=== PATIENT | male | born 1980 | race Hispanic/Latino ===

== ENCOUNTER 2016-12-23 10:11 | Emergency (ER) | payer OTHER ==
[~2016-12-23] VITALS: Ht 180.3 cm; Wt 91.0 kg
[~2016-12-23 10:11] MED LIST: IBUP-1827 PO
[2016-12-23 10:15] VITALS: BP 126/82; PULSE 82; RESP 17; O2SAT 98
--- NOTE | 2016-12-23 10:16 | ED.REPORT ---
HPI-Chest Pain Under 40 Date of Service Dec 23, 2016 ED Provider: Evan Foley DO 36 year old male with a history of GERD, anxiety, and depression presents to the ER accompanied by his complaining of chest pain onset while working about an hour ago. Associated symptom of transient left arm numbness lasting approximately 1 minute. Squatting down and breathing deeply provided some relief of his pain. Symptoms are currently improved, with residual chest soreness. He states that symptoms onset shortly after he was "disrespected by his boss". Currently he is on Tramadol for muscle spasms in his back. Nursing Notes Stated Complaint: CHEST PAIN Chief Complaint: Chest Pain Nursing Notes Reviewed: Yes Allergies: Coded Allergies: No Known Allergies (Verified Allergy, Unknown, 03/08/16) Scheduled PRN Ibuprofen (Ibuprofen) 600 Mg Tablet 600 MG PO QID PRN PRN For Pain General Time Seen by MD: 10:16 Chief Complaint Chest pain Hx Obtained From: Patient Arrived By: Walk-in Sudden in Onset?: Yes Onset Occurred: 1 - 4 hours ago (1) Symptom Duration: Since onset Location: : Substernal Quality: Painful Severity: Current: Mild Severity: Maximum: Moderate Associated with: Reports: Numbness/tingling (Left Arm) Pertinent Negative: Pt denies other symptoms Context Related History: Reports: Anxiety disorder, GERD Similar Sx Previous: No Past Medical History Past Medical History GERD anxiety depression Past Surgical History denies Family History Reports: Diabetes mellitus, Hypertension Smoking History Never Smoker Social History Alcohol Use: In recovery Drug Use: Denies drug use Other Social History: Occupation lives with Ambulatory Status Independent Review of Systems Constitutional: Denies: Chills, Fever Respiratory: Denies: Non-productive cough, Shortness of breath Cardiovascular: Reports: Chest pain GI: Denies: Nausea, Vomiting Musculoskeletal: Denies: Back pain, Extremity pain, Neck pain Skin: Denies Diaphoresis Neurologic: Reports: Numbness (Left Arm) Complete sys rev & neg: except as marked. Physical Exam Initial Vital Signs Vital Signs (First) Date Time Temp Pulse Resp B/P Pulse Ox O2 Delivery O2 Flow Rate FiO2 12/23/16 10:15 36.8 82 17 126/82 98 Room Air Initial VS: Reviewed Head / Eyes: Atraumatic, Normocephalic Neck: Supple, Non-tender, Full range of motion Extremities: Vascular intact, Neuro intact, No swelling, No tenderness Skin: Warm, Dry, No cyanosis Neurologic: Alert, Oriented, Nonfocal General/Constitutional: Awake, Alert, Well developed, Well nourished Respiratory / Chest: Breath sounds NL, Breath sounds = bilat, No respiratory distress, No rales, No rhonchi, No wheezing Chest Wall / Ribs: Positive: Chest tender upper L Reproducible chest pain by moving the left arm. Cardiovascular: Heart rate NL, Regular rhythm, Heart sounds NL, No murmurs, Peripheral circulation NL, Pulses = bilaterally, No gross BP differential Interpretation & Diagnostics Lab Results Interpretation Result Diagram: 12/23/16 1031 12/23/16 1031 Test 12/23/16 10:31 White Blood Count 7.2th/mm3 (3.8-10.1) Red Blood Count 4.79mil/mm3 (4.40-5.80) Hemoglobin 13.3g/dL (13.8-17.2) Hematocrit 40.7% (41.0-50.0) Mean Corpuscular Volume 85.0fL (81-100) Mean Corpuscular Hemoglobin 27.8pg (27.0-35.0) Mean Corpuscular Hemoglobin Concent 32.7% (32.0-37.0) Red Cell Distribution Width 13.4% (12.3-15.4) Platelet Count 274bil/L (150-400) Neutrophils (%) (Auto) 70.7% (40-74) Lymphocytes (%) (Auto) 18.3% (14-46) Monocytes (%) (Auto) 8.2% (4-12) Eosinophils (%) (Auto) 2.4% (0-5) Basophils (%) (Auto) 0.3% (0-3) Sodium Level 138mEq/L (134-144) Potassium Level 4.0mEq/L (3.5-5.2) Chloride Level 101mEq/L (97-108) Carbon Dioxide Level 24mmol/L (18-29) Blood Urea Nitrogen 11mg/dL (6-20) Creatinine 0.73mg/dL (0.76-1.27) Estimat Glomerular Filtration Rate 129mL/min (>59) Glucose Level 82mg/dL (60-99) Calcium Level 9.3mg/dL (8.5-10.1) Magnesium Level 1.9mg/dL (1.6-2.6) Total Bilirubin 0.4mg/dL (0.0-1.2) Aspartate Amino Transf (AST/SGOT) 16U/L (0-50) Alanine Aminotransferase (ALT/SGPT) 17U/L (0-44) Alkaline Phosphatase 66U/L (25-150) Troponin T < 0.010ug/L (0.0-0.011) Total Protein 7.4g/dL (6.4-8.4) Albumin 4.2g/dL (3.4-5.0) ECG Interpretation ECG Interpretation: Sinus rhythm, rate 79 Time: 10:24 Interpreted by: ED physician X-Ray Chest Interpretation Chest Xray Interpretation: IMPRESSION: No acute pulmonary process. Dictated by: Katie Hyman M.D. on 12/23/2016 at 11:05 Approved by: Katie Hyman M.D. on 12/23/2016 at 11:05 View: Portable, 1 view Interpretation / Wet Read by: Interpret - Radiologist Re-Eval/Medical Decision Med Decision/Clinical Course Doubt acute coronary syndrome, pulmonary embolism, aortic dissection, or any other life-threatening pathology. Symptoms sound directly correlated with an acute situational disturbance and have resolved. Return in follow-up precautions given. Source of Hx: Old records Re-Evaluation/Progress : Time of Eval: 11:56 Re-Evaluation/Progress Note: Discussed physical lab and radiology results and plan to discharge. Patient is amenable to the plan. Return precautions given. All other questions addressed. Counseled Regarding: Diagnosis, Lab results, Need for follow-up, When/why to return to ED Discharge & Departure Primary Impression: Chest pain Disposition: Home Discharge Condition All VS Reviewed: Yes Condition: Stable Patient Instructions: Chest Pain (ED) Additional Instructions: Your lab results and chest x-ray do not show any signs of heart attack. Call your primary care provider to arrange a follow-up appointment in the next 1 -2 days. Return to the ER if you develop new or uncontrollable chest pain, shortness of breath, profuse sweating, nausea, vomiting, or any other concerning symptoms. Referrals: Jere Villalba MD (PCP) Scribe Attestation Portions of this note were transcribed by Epi Serna. IDr. Foley, personally performed the history, physical exam and medical decision-making; I reviewed and confirmed the accuracy of the information in the transcribed note. Signed by: Emerson Valiente, 12/23/2016 and 11:58 copies to: Jere Villalba MD, Timothy S DO Dec 23, 2016 10:16 EPI SERNA Dec 23, 2016 10:25
[2016-12-23 10:50] LABS: BASOPHILS % (AUTO) 0.3 % (0-3); EOSINOPHILS % (AUTO) 2.4 % (0-5); MONOCYTES % (AUTO) 8.2 % (4-12); Mean Corpuscular Hemoglobin 27.8 pg (27.0-35.0); NEUTROPHILS % (AUTO) 70.7 % (40-74); Platelet Count 274 bil/L (150-400)
--- NOTE | 2016-12-23 11:06 | DRSVH ---
PROCEDURE: X-RAY CHEST ONE VIEW, PORTABLE ([id number]) INDICATIONS: cp TECHNIQUE: One view of the chest was acquired. COMPARISON: [facility], CR, XR CHEST 2VW, 03/08/2016, 19:46. FINDINGS: Surgical changes and devices: None. Lungs and pleura: No pleural effusions or pneumothorax. Lungs are clear. Mediastinum: Mediastinal contours appear normal. Heart size is normal. Bones and chest wall: No suspicious bony lesions. Overlying soft tissues appear unremarkable. IMPRESSION: No acute pulmonary process. Dictated by: Katie Hyman M.D. on 12/23/2016 at 11:05 Approved by: Katie Hyman M.D. on 12/23/2016 at 11:05
[2016-12-23 11:34] LABS: Magnesium 1.9 mg/dL (1.6-2.6)
[2016-12-23 11:43] LABS: TROPONIN T < 0.010 ug/L (0.0-0.011)
[2016-12-23 12:06] VITALS: BP 105/67; PULSE 78; RESP 16; O2SAT 98
== END 2016-12-23 12:07 | disposition home or self-care (01) ==
LOC: SED 10:11
DX: R07.2 Precordial pain (principal); R20.0 Anesthesia of skin; M62.830 Muscle spasm of back; K21.9 Gastro-esophageal reflux disease without esophagitis

== ENCOUNTER 2017-01-22 18:39 | Emergency (ER) | payer OTHER ==
[~2017-01-22] VITALS: Ht 180.3 cm; Wt 90.0 kg
[2017-01-22 18:50] VITALS: BP 101/63; PULSE 69; RESP 16; O2SAT 100
--- NOTE | 2017-01-22 19:36 | DRSVH ---
PROCEDURE: X-RAY LEFT FOOT COMPLETE, MINIMUM THREE VIEWS ([id number]) INDICATIONS: Stepped on nail TECHNIQUE: 3 views of the foot were acquired. COMPARISON: None. FINDINGS: Bones: No fractures or dislocations. No suspicious bony lesions. Soft tissues: No tibiotalar joint effusion. Achilles tendon appears normal. IMPRESSION: No fracture or foreign body found. No osteomyelitis identified. Dictated by: Royer Boyer M.D. on 01/22/2017 at 19:34 Approved by: Royer Boyer M.D. on 01/22/2017 at 19:34
--- NOTE | 2017-01-22 19:53 | ED.REPORT ---
HPI-Extremity Problem Lower Date of Service January 22, 2017 ED Provider: Matt Resendiz MD Patient is a 36 year old male who presents to the ED s/p stepping on a nail around 1800 yesterday. The nail went through his shoe into his L heel. He denies fever, abdominal pain, or any other symptoms. He does not know when his last tetanus shot was. Nursing Notes Stated Complaint: STEPPED ON NAIL/LEFT FOOT Chief Complaint: Extremity Trauma Nursing Notes Reviewed: Yes Allergies: Coded Allergies: No Known Allergies (Verified Allergy, Unknown, 01/22/17) Scheduled Ciprofloxacin (Ciprofloxacin) 500 Mg Tablet 500 MG PO BID Scheduled PRN Ibuprofen (Ibuprofen) 600 Mg Tablet 600 MG PO QID PRN PRN For Pain General Time Seen by MD: 19:50 Chief Complaint Other (Foot injury L ) Hx Obtained From: Patient Arrived By: Walk-in Onset Occurred: Yesterday Immunizations: Tetanus not up to date Past Medical History Past Medical History GERD anxiety depression Past Surgical History denies Family History Reports: Diabetes mellitus, Hypertension Smoking History Never Smoker Social History Alcohol Use: In recovery Drug Use: Denies drug use Other Social History: Occupation lives with Ambulatory Status Independent Review of Systems Constitutional: Denies: Fever Musculoskeletal: Reports: Extremity swelling (L foot pain) Complete sys rev & neg: except as marked. GI: Denies: Abdominal pain Physical Exam Initial Vital Signs Vital Signs (First) Date Time Temp Pulse Resp B/P Pulse Ox O2 Delivery O2 Flow Rate FiO2 01/22/17 18:50 36.8 69 16 101/63 100 Room Air Initial VS: Reviewed General/Constitutional: Well-developed, Well-nourished Head / Eyes: Atraumatic, Normocephalic Neck: Full range of motion Respiratory: Breath sounds normal, Clear to auscultation, No respiratory distress Cardiovascular: Regular rate & rhythm, Heart sounds normal, Intact distal pulses Abdomen / GI: Soft, Non-tender Skin: Warm, Dry, No cyanosis Neurologic: Alert, Oriented, Nonfocal Psychiatric: Mood/affect normal, Behavior normal, Normal thought content Lower Extremity / Pelvis / MS: Inspection NL Ankle / Foot: Neurologic intact, Vascular intact Puncture wound on the L heel that is about 2 mm across. No erythema, drainage, foreign body, warmth, or sign of infection. Interpretation & Diagnostics X-Ray Interpretation Xray Interpretation: IMPRESSION: No fracture or foreign body found. No osteomyelitis identified. Dictated by: Royer Boyer M.D. on 01/22/2017 at 19:34 Approved by: Royer Boyer M.D. on 01/22/2017 at 19:34 Study Performed: Foot, L, 3 views Interpretation / Wet Read by: Interpret - Radiologist Re-Eval/Medical Decision Med Decision/Clinical Course Patient presents for evaluation after stepping on a nail yesterday. The nail punctured through his shoe and into his foot. Examination reveals a puncture wound about the plantar aspect of his foot. There is no evidence of foreign body or infection. Here in the emergency room his tetanus status was updated. I prescribed a course of ciprofloxacin for pseudomonal coverage. He is advised to return immediately for any signs of infection. Plain films demonstrate no foreign body in the foot. Prior to discharge follow-up and return precautions were reviewed in detail with the patient who verbalized understanding and agreement with the plan. The patient was discharged in stable condition. Re-Evaluation/Progress : Time of Eval: 20:00 Re-Evaluation/Progress Note: Discussed plan for discharge. Patient understands and agrees with plan. All questions addressed at this time. Counseled Regarding: Diagnosis, Need for follow-up, When/why to return to ED Discharge & Departure Impression: Primary Impression: Puncture wound of left foot excluding toes without complication Encounter type: initial encounter Qualified Code: S91.332A - Puncture wound without foreign body, left foot, initial encounter Disposition: Home Discharge Condition All VS Reviewed: Yes Condition: Improved Additional Instructions: Thank you for seeking care at the emergency room. Our primary goal today in the ED was to evaluate you for any life-threatening conditions. Your evaluation was reassuring. You will be discharged with a prescription for ciprofloxacin. Take as directed. You should follow-up with your primary doctor in the next week. You should return to the ED immediately if you develop fevers, chills, vomiting , swelling, redness, warmth, or any other concerning signs or symptoms. Thank you for letting us partake in your care today. Referrals: Ruby Braga DO (PCP) Scribe Attestation Portions of this note were transcribed by Glendy Jay. I, Dr. Resendiz personally performed the history, physical exam and medical decision-making; I reviewed and confirmed the accuracy of the information in the transcribed note. Signed by: Glendy Jay 01/22/172002 copies to: Ruby Braga Beck O MD January 22, 2017 19:53 GLENDY JAY January 22, 2017 20:01
[2017-01-22] MEDS ORDERED: CIPR-198 PO (20:03)
[2017-01-22] MEDS ORDERED: TdaP Vaccine 0.5 mL Inj IM ONE (20:05)
[2017-01-22 20:42] VITALS: BP 109/73; PULSE 52; RESP 16; O2SAT 99
== END 2017-01-22 20:36 | disposition home or self-care (01) ==
LOC: SED 18:39
DX: S91.332A Puncture wound without foreign body, left foot, initial encounter (principal); W45.0XXA Nail entering through skin, initial encounter; Y93.89 Activity, other specified; Y92.89 Other specified places as the place of occurrence of the external cause; Y99.8 Other external cause status; K21.9 Gastro-esophageal reflux disease without esophagitis; F32.9 Major depressive disorder, single episode, unspecified; Z23 Encounter for immunization